=== PATIENT | male | born 1955 | race Caucasian/White ===

== ENCOUNTER → 2022-10-03 09:36 | Outpatient (BNVA) | payer MEDICARE, SELFPAY | PROVIDERS: Visit Provider Psychiatry & Neurology Neurology | DX: G20 Parkinson's disease (principal) | CPT/HCPCS: 99202 ==

== ENCOUNTER 2023-04-03 10:56 | Outpatient (AMB) | payer MEDICARE, SELFPAY ==
--- NOTE | 2023-04-03 11:00 | MHC.OFFVIS ---
Intake Vital Signs 04/03/23 11:01 Height 6 ft Weight 187 lb 6 oz BMI 25.4 BP 118/70 Blood Pressure Location Lt brachial Position Sitting Respiration 16 Pulse 78 Pulse Source Pulse Oximeter Pulse Oximetry (%) 98 Oxygen Delivery Method Room Air Intake Visit Reasons: 2 mnts f/u for Parkinson's- Confirmed Intake Note: Pt presents to the office for a 6 month follow up for Parkinson's. He reports he has been ok. No changes in his symptoms. Steward/Stewardess Economy Class Required: No Allergies No Known Allergies Allergy (Verified 04/03/23 11:01) Medication List - Last Reconciled 04/03/23 by Marsha Ramírez MD carbidopa-levodopa 25-250 mg orally; Take 1.5 tab 4:30AM, and 9am and 1:30PM and 6:PM 90 days cholecalciferol (vitamin D3) 50 mcg PO DAILY docusate sodium (Colace) 100 mg PO DAILY gabapentin 300 mg PO TID 90 days nortriptyline orally; 1 Tab at supper and 2 @ Bedtime 90 days polyethylene glycol 3350 (Miralax) 17 grams PO DAILY pramipexole 1.5 mg PO TID 90 days sennosides (Natural Senna Laxative) 8.6 mg PO BEDTIME PRN HPI HPI Comments History of Present Illness Details 67y/o right handed male comes for follow up of parkinsons disease. He was diagnosed with parkinsons disease in 2007 - it started as right foot cramping,severe pain tingling and difficulty walking.He was also referred to [facility] for DBS - . His last Battery change in 2020.His neurologist in [place] is moving and he is here to establish care.He is also under the care of neurologist- Dr.Alice Kirby [facility] .He saw Dr Frida Owen at [facility] last month and his DBS was checked . He is on levodopa 1750mg /day Pramipexole 1.5mg tid His main issues are falls and gait issues. 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, he fell out of bed once- better Mood- normal Motivated- good Drooling- none Speech- softer Handwriting- small , illegible Utensils- slow Personal hygiene-slow SHower- slow Turning in bed- slow Falls- frequently Gait- slow, walking stick occasionally dyskinesias- less than before Hallucinations- none swallowing- coughs while eating Dizziness- none no loss of appetite or weight Freezing - multiple times a day -lasting few seconds denies OCD like symptoms His son has h/o OCD [facility] Medical History Parkinson's disease Surgical History H/O brain surgery Family History (Reviewed 04/03/23 @ 11: by Marsha Ramírez MD) Mother Heart disease History of fracture of both hips Social History Alcohol intake: never Patient Tobacco Use Status: Never used Tobacco Review of Systems Neuro Reports Abnormal speech present Physical Exam Vital Signs: Last Vital Signs Pulse 78 04/03/23 11:01 Resp 16 04/03/23 11:01 BP 118/70 04/03/23 11:01 Pulse Ox 98 04/03/23 11:01 Oxygen Delivery Method Room Air 04/03/23 11:01 BMI result Body Mass Index 25.4 Const Orientation/consciousness: oriented to time Eyes Pupils: Equal, round and reactive pupils present Neuro Other: antecollis, left laterocollis and right torticollis Mild to moderate dyskinesia Moderate hypophonia Mild decreased facial expression and blink No tremors Tone normal Decreased Fine finger movements and foot taps decreased gentry Hypophonia General: oriented to time, tone normal, moves all extremities and no focal motor deficits Cranial nerves: Yes Facial sensation intact/muscles of mastication intact, Yes Equal, round and reactive pupils present, Yes Bilaterally intact EOM present, Yes Nystagmus not present, Yes Normal facial strength present, Yes Midline tongue present, Yes Symmetric palate elevation present and Yes Ability to bilaterally elevate shoulders present Cognition (Neuro): normal cognition Speech: Abnormal speech present Gait exam (Neuro): Other gait observations present (off balance) Motor exam (neuro): 5/5 motor strength present throughout Coordination: [id number] test normal Psych Appearance: grossly normal Assessment & Plan Assessment & Plan (1) Parkinson's disease: Comment: young onset Code(s): G20 - Parkinson's disease Plan Continue sinemet 25/250 1 1/2 tabs qid nortriptyline 25mg 1 tab at supper 1 tabs qhs pramipexole 1.5mg tid gabapentin 300mg tid PT and speech therapy Discussed in detail about fall prevention Medications: New polyethylene glycol 3350 (Miralax) 17 grams PO DAILY 510 grams 0RF sennosides (Natural Senna Laxative) 8.6 mg PO BEDTIME PRN 30 tabs 6RF constipation docusate sodium (Colace) 100 mg PO DAILY 30 caps 0RF Coding Level of Care Code Est Pt Level 4 (77028) Diagnoses Parkinson's disease G20
[2023-04-03 11:01] VITALS: BP 118/70; PULSE 78; RESP 16; O2SAT 98; BMI 25.4
== END 2023-04-03 11:35 | disposition home or self-care (01) ==
PROVIDERS: PCP Physician Assistant Medical; Visit Provider Psychiatry & Neurology Neurology
DX: G20.B2 Parkinson's disease with dyskinesia, with fluctuations (principal); R29.6 Repeated falls
CPT/HCPCS: 99214

== ENCOUNTER → 2023-04-03 10:56 | Outpatient (BNVA) | payer MEDICARE, SELFPAY | PROVIDERS: PCP Physician Assistant Medical; Visit Provider Psychiatry & Neurology Neurology | DX: G20.A1 Parkinson's disease without dyskinesia, without mention of fluctuations (principal) | CPT/HCPCS: 99212 ==

== ENCOUNTER → 2023-10-02 10:39 | Outpatient (BNVA) | payer MEDICARE, SELFPAY | PROVIDERS: PCP Physician Assistant Medical; Visit Provider Psychiatry & Neurology Neurology ==

== ENCOUNTER 2024-04-15 10:11 | Outpatient (AMB) | payer MEDICARE, SELFPAY ==
--- NOTE | 2024-04-15 10:20 | A.OFFVIS_ITS ---
Vital Signs 04/15/24 10:21 Height 6 ft Weight 182 lb BMI 24.7 BP 162/102 H Blood Pressure Location Rt brachial Position Sitting Intake Visit Reasons: 6 mnts f/u for parkinson's Intake Note: Patient presents for parkinson's patient has been falling lately for the last few months Allergies No Known Allergies Allergy (Verified 04/15/24 10:23) Medication List - Last Reconciled 04/15/24 by Marsha Ramírez MD carbidopa-levodopa 25-250 mg orally; Take 1.5 tab 4:30AM, and 9am and 1:30PM and 6:PM 90 days cholecalciferol (vitamin D3) 50 mcg PO DAILY docusate sodium (Colace) 100 mg PO DAILY gabapentin 300 mg PO TID 90 days nortriptyline orally; 1 Tab at supper and 2 @ Bedtime 90 days polyethylene glycol 3350 (Miralax) 17 grams PO DAILY pramipexole 1.5 mg PO TID 90 days sennosides (Natural Senna Laxative) 8.6 mg PO BEDTIME PRN HPI Comments Details: 69y/o right handed male comes for follow up of parkinsons disease after 1 year. He has had multiple falls since last visit. He also has left knee issues- seeing ortho . He denies dizziness prior to his falls. He loses balance. He was diagnosed with parkinsons disease in 2007 - it started as right foot cramping,severe pain tingling and difficulty walking.He was also referred to [facility] for DBS - . His last Battery change in 2020.His neurologist in [place] is moving and he is here to establish care.He is also under the care of neurologist- Dr.Alice Kirby [facility] .He saw Dr Frida Owen at [facility] last year and his DBS was checked . He is on levodopa 1750mg /day Pramipexole 1.5mg tid His main issues are falls and gait issues. 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, he fell out of bed once- better Mood- normal Motivated- good Drooling- none Speech- softer Handwriting- small , illegible Utensils- slow Personal hygiene-slow SHower- slow Turning in bed- slow Falls- frequently Gait- slow, walking stick occasionally dyskinesias- less than before Hallucinations- none swallowing- coughs while eating Dizziness- none no loss of appetite or weight Freezing - multiple times a day -lasting few seconds denies OCD like symptoms His son has h/o OCD [facility] Medical History (Updated 04/15/24 @ 10:31 by Marsha Ramírez MD) Falls frequently Parkinson's disease Surgical History H/O brain surgery Family History Mother Heart disease History of fracture of both hips Social History Alcohol intake: never Patient Tobacco Use Status: Never used Tobacco Review of Systems Neuro Reports Abnormal speech present Physical Exam Vital Signs: Last Vital Signs BP 162/102 H 04/15/24 10:21 BMI result Body Mass Index 24.7 Const Other: Supine'- 112/78 68 Standing 1 min 92/88 84/min 3 min 90/84 84/min Orientation/consciousness: oriented to time Eyes Pupils: Equal, round and reactive pupils present Neuro Other: antecollis, left laterocollis and right torticollis Mild to moderate dyskinesia Moderate hypophonia Mild decreased facial expression and blink No tremors Tone normal Decreased Fine finger movements and foot taps decreased gentry Hypophonia General: oriented to time, tone normal, moves all extremities and no focal motor deficits Cranial nerves: Yes Facial sensation intact/muscles of mastication intact, Yes Equal, round and reactive pupils present, Yes Bilaterally intact EOM present, Yes Nystagmus not present, Yes Normal facial strength present, Yes Midline to ngue present, Yes Symmetric palate elevation present and Yes Ability to bilaterally elevate shoulders present Cognition (Neuro): normal cognition Speech: Abnormal speech present Gait exam (Neuro): Other gait observations present (off balance) Motor exam (neuro): 5/5 motor strength present throughout Coordination: [id number] test normal Psych Appearance: grossly normal Assessment & Plan Assessment & Plan (1) Parkinson's disease: Comment: young onset Code(s): G20 - Parkinson's disease Category: Medical Qualifiers: Dyskinesia presence: with dyskinesia Fluctuating manifestations: with fluctuating manifestations Qualified Code(s): G20.B2 - Parkinson's disease with dyskinesia, with fluctuations (2) Falls frequently: Code(s): R29.6 - Repeated falls Category: Medical Plan Decrease sinemet 25/250 1 1/2 tabs bid and 1 tab bid ( 1 05/29-1- 1 05/29 -1) nortriptyline 25mg 1 tab at supper 1 tabs qhs pramipexole 1.5mg tid gabapentin 300mg tid U step walker Discussed in detail about fall prevention Medications: New [walker u-step] As directed 1 ea 0RF parkinsons disease G20.B2 - Parkinson's disease with dyskinesia, with fluctuations, R29.6 - Repeated falls Coding Level of Care Code Est Pt Level 4 (94766) Complex EM visit Add On G2211 Diagnoses Parkinson's disease with dyskinesia and fluctuating manifestations G20.B2 Dyskinesia presence: with dyskinesia Fluctuating manifestations: with fluctuating manifestations Falls frequently R29.6
[2024-04-15 10:21] VITALS: BP 162/102; BMI 24.7
== END 2024-04-15 11:06 | disposition home or self-care (01) ==
PROVIDERS: PCP Physician Assistant Medical; Visit Provider Psychiatry & Neurology Neurology
DX: G20.B2 Parkinson's disease with dyskinesia, with fluctuations (principal); R29.6 Repeated falls
CPT/HCPCS: 99214; G2211

== ENCOUNTER → 2024-04-15 10:11 | Outpatient (BNVA) | payer MEDICARE, SELFPAY | PROVIDERS: PCP Physician Assistant Medical; Visit Provider Psychiatry & Neurology Neurology | DX: G20.B2 Parkinson's disease with dyskinesia, with fluctuations (principal); R29.6 Repeated falls | CPT/HCPCS: 99212 ==

== ENCOUNTER 2024-06-26 11:22 | Outpatient (AMB) | payer MEDICARE, SELFPAY ==
--- NOTE | 2024-06-26 11:23 | MHC.OFFVIS ---
Intake Visit Reasons: 2m f/u parkinson's Intake Note: Patient presents for follow up Allergies No Known Allergies Allergy (Verified 06/26/24 11:23) Medication List - Last Reconciled 06/26/24 by Marsha Ramírez MD carbidopa-levodopa 25-250 mg orally; Take 1.5 tab 4:30AM, and 9am and 1:30PM and 6:PM 90 days cholecalciferol (vitamin D3) 50 mcg PO DAILY docusate sodium (Colace) 100 mg PO DAILY gabapentin 300 mg PO TID 90 days nortriptyline orally; 1 Tab at supper and 2 @ Bedtime 90 days polyethylene glycol 3350 (Miralax) 17 grams PO DAILY pramipexole 1.5 mg PO TID 90 days sennosides (Natural Senna Laxative) 8.6 mg PO BEDTIME PRN [walker u-step As directed] HPI Comments Details: 69y/o right handed male comes for follow up of parkinsons disease after 1 year. He has had multiple falls since last visit. He also has left knee issues- seeing ortho . He denies dizziness prior to his falls. He loses balance. He was diagnosed with parkinsons disease in 2007 - it started as right foot cramping,severe pain tingling and difficulty walking.He was also referred to [facility] for DBS - . His last Battery change in 2020.His neurologist in [place] is moving and he is here to establish care.He is also under the care of neurologist- Dr.Alice Kirby [facility] .He saw Dr Frida Owen at [facility] last year and his DBS was checked . He is on levodopa 6 tabs /day Pramipexole 1.5mg tid His main issues are falls and gait issues. 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, he fell out of bed once- better Mood- normal Motivated- good Drooling- none Speech- softer Handwriting- small , illegible Utensils- slow Personal hygiene-slow SHower- slow Turning in bed- slow Falls- frequently Gait- slow, walking stick occasionally dyskinesias- less than before Hallucinations- none swallowing- coughs while eating Dizziness- none no loss of appetite or weight Freezing - multiple times a day -lasting few seconds denies OCD like symptoms His son has h/o OCD [facility] Medical History Falls frequently Parkinson's disease Surgical History H/O brain surgery Family History Mother Heart disease History of fracture of both hips Social History Alcohol intake: never Patient Tobacco Use Status: Never used Tobacco Review of Systems Neuro Reports Abnormal speech present Physical Exam Neuro Other: antecollis, left laterocollis and right torticollis No dyskinesia Moderate hypophonia Mild decreased facial expression and blink No tremors Gait - small steps decreased arm swings gentry L>R Decreased Fine finger movements and foot taps decreased gentry Hypophonia Cognition (Neuro): normal cognition Speech: Abnormal speech present Gait exam (Neuro): Other gait observations present (off balance) Psych Appearance: grossly normal Telehealth Telehealth Telehealth Platform: Telephone Location of provider rendering services: practice address Location of patient: address on file Patient Identification confirmed using: Name, : Yes Telehealth method: video Patient verbally consented to treatment: Yes Patient verbally consented to billing insurance company: Yes Patient informed of any privacy concerns related to visit: Yes Minutes spent on Phone/Video with Pt.: 22 Assessment & Plan Assessment & Plan (1) Parkinson's disease: Comment: young onset Code(s): G20 - Parkinson's disease Category: Medical Qualifiers: Dyskinesia presence: with dyskinesia Fluctuating manifestations: with fluctuating manifestations Qualified Code(s): G20.B2 - Parkinson's disease with dyskinesia, with fluctuations (2) Falls frequently: Code(s): R29.6 - Repeated falls Category: Medical Plan Decrease sinemet 25/250 1 tabs qid nortriptyline 25mg 1 tab at supper 1 tabs qhs pramipexole 1.5mg tid Decrease gabapentin 300mg qhs Walker- [facility] they Discussed in detail about fall prevention Coding Level of Care Code Tele Est Pt Level 4 (71886) Complex EM visit Add On G2211 Diagnoses Parkinson's disease with dyskinesia and fluctuating manifestations G20.B2 Dyskinesia presence: with dyskinesia Fluctuating manifestations: with fluctuating manifestations Falls frequently R29.6
== END 2024-06-26 12:49 | disposition home or self-care (01) ==
LOC: HO.HSMS 11:22
PROVIDERS: PCP Physician Assistant Medical; Visit Provider Psychiatry & Neurology Neurology
DX: G20.B2 Parkinson's disease with dyskinesia, with fluctuations (principal); R29.6 Repeated falls
CPT/HCPCS: 99214; G2211

== ENCOUNTER → 2024-06-26 11:22 | Outpatient (BNVA) | payer MEDICARE, SELFPAY | PROVIDERS: PCP Physician Assistant Medical; Visit Provider Psychiatry & Neurology Neurology | DX: R29.6 Repeated falls (principal); G20.B2 Parkinson's disease with dyskinesia, with fluctuations ==

== ENCOUNTER 2024-10-07 10:00 | Outpatient (AMB) | payer MEDICARE, SELFPAY ==
--- NOTE | 2024-10-07 10:01 | A.OFFVIS_ITS ---
Vital Signs 10/07/24 10:02 Height 6 ft Weight 180 lb BMI 24.4 BP 122/78 Blood Pressure Location Rt brachial Position Sitting Intake Visit Reasons: 3 mnts per MD-LVM Intake Note: Patient presents for follow up med adjustment Allergies No Known Allergies Allergy (Verified 10/07/24 10:05) HPI Comments Details: 69y/o right handed male comes for follow up of parkinsons disease . He did not make the changes as suggested. His last dose is at 6pm and 1st dose is at 4.30 am . when he wakes up he is very slow. He has had multiple falls since last visit. He denies dizziness prior to his falls. He loses balance. He still has severe knee pain and is contributing to his gait difficulties. History from last visit- He was diagnosed with parkinsons disease in 2007 - it started as right foot cramping,severe pain tingling and difficulty walking.He was also referred to [facility] for DBS - . His last Battery change in 2020.His neurologist in [place] is moving and he is here to establish care.He is also under the care of neurologist- Dr.Alice Kirby [facility] .He saw Dr Frida Owen at [facility] last year and his DBS was checked . He is on carbidopa/ levodopa 5 tabs /day 25/250 1.5-1-1.5-1 Pramipexole 1.5mg tid His main issues are falls and gait issues. 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, he fell out of bed once- better Mood- normal Motivated- good Drooling- none Speech- softer Handwriting- small , illegible Utensils- slow Personal hygiene-slow SHower- slow Turning in bed- slow Falls- frequently Gait- slow, walking stick occasionally dyskinesias- less than before Hallucinations- none swallowing- coughs while eating Dizziness- none no loss of appetite or weight Freezing - multiple times a day -lasting few seconds denies OCD like symptoms His son has h/o OCD [facility] Medical History Falls frequently Parkinson's disease Surgical History (Updated 10/07/24 @ 15:03 by Marsha Ramírez MD) S/P deep brain stimulator placement H/O brain surgery Family History Mother Heart disease History of fracture of both hips Social History Alcohol intake: never Patient Tobacco Use Status: Never used Tobacco Review of Systems Neuro Reports Abnormal speech present Physical Exam Vital Signs: Last Vital Signs BP 122/78 10/07/24 10:02 BMI result Body Mass Index 24.4 Neuro Other: antecollis, left laterocollis and right torticollis No dyskinesia Moderate hypophonia Mild decreased facial expression and blink No tremors Gait - small steps decreased arm swings gentry L>R Decreased Fine finger movements and foot taps decreased gentry Hypophonia Cognition (Neuro): normal cognition Speech: Abnormal speech present Gait exam (Neuro): Other gait observations present (off balance) Psych Appearance: grossly normal Assessment & Plan Assessment & Plan (1) Parkinson's disease: Comment: young onset Code(s): G20 - Parkinson's disease Category: Medical Qualifiers: Dyskinesia presence: with dyskinesia Fluctuating manifestations: with fluctuating manifestations Qualified Code(s): G20.B2 - Parkinson's disease with dyskinesia, with fluctuations (2) Falls frequently: Code(s): R29.6 - Repeated falls Category: Medical (3) S/P deep brain stimulator placement: Comment: [employer] STN last battery 2020 Code(s): Z96.89 - Presence of other specified functional implants Category: Surgical Plan change sinemet to 25/100 2 tabs 4am,8am,12pm,4pm,8pm,12 am nortriptyline 25mg 1 tab at supper 1 tabs qhs pramipexole 1.5mg tid Decrease gabapentin 300mg qhs Discussed in detail about fall prevention DBS interrogated Left STN (-2 +1) 2.7ma, 60ms,130hz Right STN ( -9) 2.1ma 60ms 130Hz Battery - Percept PC [id number] Battery level 33% Coding Level of Care Code Est Pt Level 4 (00792) Diagnoses Parkinson's disease with dyskinesia and fluctuating manifestations G20.B2 Dyskinesia presence: with dyskinesia Fluctuating manifestations: with fluctuating manifestations Falls frequently R29.6 S/P deep brain stimulator placement Z96.89 Comment 68075 - DBS interrogated
[2024-10-07 10:02] VITALS: BP 122/78; BMI 24.4
== END 2024-10-07 10:40 | disposition home or self-care (01) ==
LOC: HO.HSMS 10:01
PROVIDERS: PCP Physician Assistant Medical; Visit Provider Psychiatry & Neurology Neurology
DX: G20.B2 Parkinson's disease with dyskinesia, with fluctuations (principal); R29.6 Repeated falls; Z96.82 Presence of neurostimulator
CPT/HCPCS: 95970; 99214

== ENCOUNTER → 2024-10-07 10:00 | Outpatient (BNVA) | payer MEDICARE, SELFPAY | PROVIDERS: PCP Physician Assistant Medical; Visit Provider Psychiatry & Neurology Neurology | DX: G20.B2 Parkinson's disease with dyskinesia, with fluctuations (principal); R29.6 Repeated falls; Z96.89 Presence of other specified functional implants | CPT/HCPCS: 95970; 99212 ==

== ENCOUNTER 2025-01-13 09:50 | Outpatient (AMB) | payer MEDICARE, SELFPAY ==
--- NOTE | 2025-01-13 09:51 | MHC.OFFVIS ---
Vital Signs 01/13/25 09:52 Height 6 ft BP 120/82 Blood Pressure Location Rt brachial Position Sitting Pulse 80 Pulse Source Pulse Oximeter Pulse Oximetry (%) 98 Oxygen Delivery Method Room Air Intake Visit Reasons: 3 mo follow up Intake Note: Follow up Parkinson's and frequent falls Belt Maker Required: No Accompanied by: Spouse Allergies No Known Allergies Allergy (Verified 01/13/25 09:59) Medication List - Last Reconciled 01/13/25 by Marsha Ramírez MD carbidopa-levodopa 25-250 mg 1 tab PO .4am 10am,2pm,6pm,10p cholecalciferol (vitamin D3) 50 mcg PO DAILY docusate sodium (Colace) 100 mg PO DAILY gabapentin 300 mg PO TID 90 days naproxen sodium (Aleve) 220 mg PO BID PRN nortriptyline orally; 1 Tab at supper and 2 @ Bedtime 90 days polyethylene glycol 3350 (Miralax) 17 grams PO DAILY pramipexole 1.5 mg PO TID 90 days sennosides (Natural Senna Laxative) 8.6 mg PO BEDTIME PRN [walker u-step As directed] HPI Comments Details: 69y/o right handed male comes for follow up of parkinsons disease . He tried to change to carbidopa/levodopa 25/250 5 tabs a day to 25/100 2tabs 6 times a day but he felt bradykinetic and had freezing so went back to the original dose. His last dose is at 6pm and 1st dose is at 4.30 am . when he wakes up he is very slow. He has had multiple falls since last visit. He denies dizziness prior to his falls. He loses balance. He still has severe knee pain, sciatica and is contributing to his gait difficulties.No change in his symptoms. History from last visit- He was diagnosed with parkinsons disease in 2007 - it started as right foot cramping,severe pain tingling and difficulty walking.He was also referred to [facility] [place] for DBS - . His last Battery change in 2020.His neurologist in [place] is moving and he is here to establish care.He is also under the care of neurologist- Dr.Alice Kirby [facility] [place] .He saw Dr Frida Owen at [facility] [place] last year and his DBS was checked . He is on carbidopa/ levodopa 5 tabs /day 25/250 1.5-1-1.5-1 Pramipexole 1.5mg tid His main issues are falls and gait issues. 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, he fell out of bed once- better Mood- normal Motivated- good Drooling- none Speech- softer Handwriting- small , illegible Utensils- slow Personal hygiene-slow SHower- slow Turning in bed- slow Falls- frequently Gait- slow, walking stick occasionally dyskinesias- less than before Hallucinations- none swallowing- coughs while eating Dizziness- none no loss of appetite or weight Freezing - multiple times a day -lasting few seconds denies OCD like symptoms His son has h/o OCD PFSH Medical History Falls frequently Parkinson's disease Surgical History S/P deep brain stimulator placement H/O brain surgery Family History Mother Heart disease History of fracture of both hips Social History Alcohol intake: never Patient Tobacco Use Status: Never used Tobacco Review of Systems Neuro Reports Abnormal speech present Physical Exam Vital Signs: Last Vital Signs Pulse 80 01/13/25 09:52 BP 120/82 01/13/25 09:52 Pulse Ox 98 01/13/25 09:52 Oxygen Delivery Method Room Air 01/13/25 09:52 Neuro Other: antecollis, left laterocollis and right torticollis No dyskinesia Moderate hypophonia Mild decreased facial expression and blink No tremors Gait - small steps decreased arm swings gentry L>R Decreased Fine finger movements and foot taps decreased gentry Hypophonia Cognition (Neuro): normal cognition Speech: Abnormal speech present Gait exam (Neuro): Other gait observations present (off balance) Psych Appearance: grossly normal Assessment & Plan Assessment & Plan (1) Parkinson's disease: Comment: young onset Code(s): G20 - Parkinson's disease Category: Medical Qualifiers: Dyskinesia presence: with dyskinesia Fluctuating manifestations: with fluctuating manifestations Qualified Code(s): G20.B2 - Parkinson's disease with dyskinesia, with fluctuations (2) Falls frequently: Code(s): R29.6 - Repeated falls Category: Medical (3) S/P deep brain stimulator placement: Comment: [employer] last battery 2020 Code(s): Z96.89 - Presence of other specified functional implants Category: Surgical Plan change sinemet to 25/250 1 tab [id number]-10pm Info on VYALEV given . He has more than 4hrs of OFF time with frequent freezing and will be a good candidtae for tretament with continuous dopamine infusion. Vyalev nortriptyline 25mg 1 tab at supper 1 tabs qhs pramipexole 1.5mg tid Decrease gabapentin 300mg qhs Discussed in detail about fall prevention Medications: New carbidopa-levodopa 25-250 mg 1 tab PO .4am 10am,2pm,6pm,10p 450 tabs 6RF Discontinued carbidopa-levodopa 25-100 mg (Sinemet) Discontinued Reason: Patient no longer taking 2 tabs PO .6 times a day 90 days 1,080 tabs 1RF Coding Level of Care Code Est Pt Level 4 (06457) Complex EM visit Add On G2211 Diagnoses Parkinson's disease with dyskinesia and fluctuating manifestations G20.B2 Dyskinesia presence: with dyskinesia Fluctuating manifestations: with fluctuating manifestations Falls frequently R29.6 S/P deep brain stimulator placement Z96.89
[2025-01-13 09:52] VITALS: BP 120/82; PULSE 80; O2SAT 98
== END 2025-01-13 10:41 | disposition home or self-care (01) ==
LOC: HO.HSMS 09:50
PROVIDERS: PCP Physician Assistant Medical; Visit Provider Psychiatry & Neurology Neurology
DX: G20.B2 Parkinson's disease with dyskinesia, with fluctuations (principal); R29.6 Repeated falls; Z96.89 Presence of other specified functional implants
CPT/HCPCS: 99214; G2211

== ENCOUNTER → 2025-01-13 09:50 | Outpatient (BNVA) | payer MEDICARE, SELFPAY | PROVIDERS: PCP Physician Assistant Medical; Visit Provider Psychiatry & Neurology Neurology | DX: G20.B2 Parkinson's disease with dyskinesia, with fluctuations (principal); R29.6 Repeated falls; Z96.89 Presence of other specified functional implants | CPT/HCPCS: 99212 ==